=== PATIENT | female | born 1955 | race Caucasian/White ===

== ENCOUNTER 2020-11-22 17:17 | Emergency (ER) | payer OTHER ==
[2020-11-22 17:43] VITALS: BMI 26.1
[2020-11-22 21:29] LABS: BASO % 0.6 % (0-2.0); EOS % 0.3 % (0-4.5); HEMATOCRIT 42.4 % (32.4-45.2); HEMOGLOBIN 14.8 GM/dL (10.7-15.3); LYMPH % 28.6 % (8-40); MCH 32.2 pg (25.7-33.7); MEAN CELL VOLUME 91.9 fl (80-96); MEAN PLT VOLUME 8.2 fl (7.5-11.1); MONO % 5.8 % (3.8-10.2); NEUT % 64.7 % (42.8-82.8); PLATELET COUNT 277 K/MM3 (134-434); RBC 4.61 M/mm3 (3.60-5.2); RDW 13.5 % (11.6-15.6); WHITE BLOOD COUNT 7.7 K/mm3 (4.0-10.0)
[2020-11-22 21:45] LABS: CHLORIDE 106 mmol/L (98-107); POTASSIUM 4.1 mmol/L (3.5-5.1); SODIUM 141 mmol/L (136-145)
[2020-11-22 21:57] LABS: CALCIUM 9.7 mg/dL (8.5-10.1)
[2020-11-22 21:58] LABS: ALBUMIN 4.1 g/dl (3.4-5.0); ANION GAP 4 MMOL/L (8-16); BLOOD UREA NITROGEN 16.5 mg/dL (7-18); CO2 31 mmol/L (21-32); GLUCOSE,RANDOM 117 mg/dL (74-106)
[2020-11-22 22:00] LABS: CREATININE 0.8 mg/dL (0.55-1.3); SGOT/AST 22 U/L (15-37); SGPT/ALT 39 U/L (13-61)
[2020-11-22 22:02] LABS: BILIRUBIN,TOTAL 0.5 mg/dL (0.2-1)
[2020-11-22 22:03] LABS: TOT PROT 7.5 g/dl (6.4-8.2)
[2020-11-22 22:04] LABS: ALK PHOS 98 U/L (45-117)
[2020-11-22 22:44] VITALS: BP 130/75; PULSE 67; TEMP 98.5
== END 2020-11-22 22:43 | disposition home or self-care (01) ==
LOC: JER 17:17
DX: I10 Essential (primary) hypertension (principal)
CPT/HCPCS: 36415; 80053; 84484; 85025; 93005; 93010; 99284-25